=== PATIENT | female | born 2000 | race African-American/Black ===

== ENCOUNTER 2021-01-18 18:02 | Emergency (ER) | payer OTHER ==
[~2021-01-18] VITALS: Ht 149.9 cm; Wt 88.5 kg
[~2021-01-18 18:02] MED LIST: KEFLEX500 M1 PO; LEVSIN0.125 MG PO; TYLENOL325 MG PO
[2021-01-18 18:27] LABS: URINE BLOOD 3+ (Negative); URINE CLARITY CLOUDY; URINE COLOR RED; URINE GLUCOSE-RANDOM* NEGATIVE (Negative); URINE KETONES 1+ (Negative); URINE NITRITE-REFLEX NEGATIVE (Negative); URINE PROTEIN (DIPSTICK) 2+ (Negative)
[2021-01-18 18:30] LABS: ICTOTEST (BILI CONFIRMATORY) Negative (Negative); URINE BILIRUBIN NEGATIVE (Negative); URINE LEUKOCYTES-REFLEX 1+ (Negative)
[2021-01-18 18:36] LABS: SQUAMOUS 4-10 Moderate /LPF (0-3)
[2021-01-18 18:37] LABS: BACTERIA-REFLEX 1-9 Few /HPF (None Seen); CASTS None Seen /LPF (None Seen); CRYSTALS None Seen /LPF (None Seen); URINE RBC >20 Many /HPF (NONE SEEN); URINE WBC-REFLEX 0-5 Rare /HPF (0-5)
[2021-01-18 18:50] LABS: BASOPHILS 0.8 % (0.0-2.0); EOSINOPHILS 0.7 % (0.0-3.0); HEMATOCRIT 39.8 % (37.0-47.0); HEMOGLOBIN 13.1 gm/dL (12.0-15.0); MCH 26.7 pg (26.0-34.0); MONOCYTES 8.2 % (1.0-8.0); PLATELET COUNT 289 thou/uL (150-400); POLYS 60.3 % (36.0-66.0); RBC 4.91 mil/uL (4.20-5.00); RDW 14.3 % (10.5-14.5); WBC 6.7 thou/uL (4.0-11.0)
[2021-01-18 19:02] LABS: CALCIUM 9.3 mg/dL (8.5-10.1); CREATININE 0.9 mg/dL (0.6-1.0); POTASSIUM 3.6 mmol/L (3.5-5.1)
[2021-01-18] MEDS ORDERED: ONDANSETRON HCL4 M2 PO (20:39)
[2021-01-18 20:54] VITALS: BP 134/84
== END 2021-01-18 20:59 | disposition home or self-care (01) ==
LOC: ER 18:02
PROVIDERS: Nurse Practitioner
DX: R05 Cough (principal); R11.0 Nausea; Z88.6 Allergy status to analgesic agent